=== PATIENT | female | born 1990 | race Caucasian/White ===

== ENCOUNTER 2021-06-08 22:50 | Emergency (ER) | payer OTHER ==
[2021-06-09 01:54] VITALS: BP 90/68; PULSE 77; RESP 18; TEMP 98.1
--- NOTE | 2021-06-09 01:55 | ED ---
URI HPI - General Chief Complaint: Upper Respiratory Infection Stated Complaint: covid swab Time Seen by Provider: 06/09/21 01:51 Source: patient, RN notes reviewed Mode of arrival: ambulatory - History of Present Illness Initial Comments: Patient is a 30-year-old female that presents to the emergency room requesting a Covid swab stating that she has had cough congestion diarrhea chills and muscle aches. Patient was otherwise well-appearing in no apparent distress. Patient denied any chest pain shortness of breath headache nausea vomiting constipation fever fatigue. - Related Data Allergies Allergy/AdvReac Type Severity Reaction Status Date / Time No Known Allergies Allergy Verified 06/08/21 23:27 Review of Systems ROS Statement: Those systems with pertinent positive or pertinent negative responses have been documented in the HPI. ROS Other: All systems not noted in ROS Statement are negative. Past Medical History Past Medical History: No Reported History History of Any Multi-Drug Resistant Organisms: None Reported Past Surgical History: Tonsillectomy Additional Past Surgical History / Comment(s): wisdom teeth removal. eye surgery Past Psychological History: Anxiety Smoking Status: Never smoker Past Alcohol Use History: Occasional Past Drug Use History: Marijuana General Exam General appearance: alert, in no apparent distress Head exam: Present: atraumatic, normocephalic, normal inspection Eye exam: Present: normal appearance, PERRL, EOMI. Absent: scleral icterus, conjunctival injection, periorbital swelling ENT exam: Present: normal exam, mucous membranes moist Neck exam: Present: normal inspection Respiratory exam: Present: normal lung sounds bilaterally. Absent: respiratory distress, wheezes, rales, rhonchi, stridor Cardiovascular Exam: Present: regular rate, normal rhythm, normal heart sounds. Absent: systolic murmur, diastolic murmur, rubs, gallop, clicks Extremities exam: Present: normal inspection, full ROM, normal capillary refill. Absent: tenderness, pedal edema, joint swelling, calf tenderness Neurological exam: Present: alert, oriented X3 Course Vital Signs 06/09/21 01:52 Temperature 98.1 F Pulse Rate 77 Respiratory 18 Rate Blood Pressure 90/68 O2 Sat by Pulse 100 Oximetry Medical Decision Making - Medical Decision Making 30-year-old female complaining of upper respiratory tract symptoms for several days. Covid test ordered, Covid test negative Patient most likely has an upper respiratory tract infection and can treat this conservatively. She is a remote discharge home. Case discussed with Dr. Mcgrath. - Lab Data Lab Results 06/08/21 Range/Units 23:34 Coronavirus (PCR) Not Detected (Not Detectd) Disposition Clinical Impression: Exposure to COVID-19 virus Disposition: HOME SELF-CARE Condition: Stable Instructions (If sedation given, give patient instructions): Upper Respiratory Infection (ED) Additional Instructions: Please return to the Emergency Department if symptoms worsen or any other concerns. Is patient prescribed a controlled substance at d/c from ED?: No Referrals: None,Stated [Primary Care Provider] - 1-2 days Time of Disposition: 01:55
== END 2021-06-09 02:02 | disposition home or self-care (01) ==
LOC: EC 22:50
DX: R19.7 Diarrhea, unspecified (principal); R05.9 Cough, unspecified; R09.81 Nasal congestion; R68.83 Chills (without fever); Z20.822 Contact with and (suspected) exposure to COVID-19; F12.90 Cannabis use, unspecified, uncomplicated
CPT/HCPCS: 87635; 99284